=== PATIENT | female | born 1945 | race Two or more races ===

== ENCOUNTER 2023-10-28 12:14 | Emergency (ER) | payer OTHER ==
[~2023-10-28] VITALS: Ht 157.5 cm; Wt 74.8 kg
[2023-10-28] MEDS ORDERED: ARICEPT5 MG PO (12:33)
[2023-10-28] MEDS ORDERED: AVAPRO75 MG PO (12:33)
[2023-10-28] MEDS ORDERED: GLUMETZA500 MG PO (12:33)
[2023-10-28 13:03] LABS: HEMATOCRIT 39.6 % (36.0-45.00); HEMOGLOBIN 12.9 g/dL (12.0-15.00); MEAN CELL VOLUME 84.1 fL (80.00-100.00); MEAN CORPUSCULAR HEMOGLOBIN 27.5 pg (27.00-32.0); MEAN CORPUSCULAR HGB CONC 32.7 g/dl (32.0-36.0); PLATELET COUNT 238 K/uL (150-450); RED CELL DISTRIBUTION WIDTH 12.5 % (11.5-14.5)
[2023-10-28 13:39] LABS: CALCIUM 9.8 mg/dL (8.5-10.1); CREATININE SERUM 1.04 mg/dL (0.55-1.02); GFR 51.12; POTASSIUM 3.31 mEq/L (3.5-5.1)
[2023-10-28 15:17] LABS: PH,URINE 5.5 (5.0-8.0); URINE APPEARANCE Clear; URINE BILIRRUBIN Negative (NEGATIVE); URINE BLOOD Negative; URINE COLOR Yellow; URINE LEUKOCYTE Small; URINE NITRATE Negative; URINE PROTEIN Trace (NEGATIVE); URINE UROBILINOGEN 0.2 E.U./dl
[2023-10-28 15:18] LABS: URINE BACTERIA 265.7 uL (0.0-1933); URINE EPITHELIAL CELLS 68.3 uL (0.0-38.8); URINE RBC 2.5 uL (0.0-20.8); URINE WBC 56.2 uL (0.0-23.2)
[2023-10-28 15:29] LABS: URINE GLUCOSE >=1000 MG/DL (NEGATIVE)
[2023-10-28] MEDS ORDERED: PEPCID AC20 MG PO (16:32)
[2023-10-28] MEDS ORDERED: ONDANSETRON ODT8 MG PO (16:32)
== END 2023-10-28 16:52 | disposition home or self-care (01) ==
LOC: ER 12:15
PROVIDERS: Emergency Medicine
DX: K29.70 Gastritis, unspecified, without bleeding (principal); Z88.8 Allergy status to other drugs, medicaments and biological substances; E11.65 Type 2 diabetes mellitus with hyperglycemia; Z79.84 Long term (current) use of oral hypoglycemic drugs
CPT/HCPCS: 36415; 70450; 96365; 96366; 99284; J2405; J7042